=== PATIENT | male | born 1980 | race Caucasian/White ===

== ENCOUNTER 2018-01-09 00:40 | Emergency (ER) | payer OTHER ==
[~2018-01-09] VITALS: Ht 182.9 cm; Wt 106.6 kg
[2018-01-09 01:22] VITALS: Ht 182.9 cm; Wt 106.6 kg
[2018-01-09 01:36] VITALS: BP 144/88
== END 2018-01-09 01:36 | disposition other institution (70) ==
LOC: ED 00:40
DX: Z04.1 Encounter for examination and observation following transport accident (principal); V43.92XA Unspecified car occupant injured in collision with other type car in traffic accident, initial encounter; Y93.89 Activity, other specified; Y92.89 Other specified places as the place of occurrence of the external cause; Y99.8 Other external cause status